=== PATIENT | female | born 1945 | race Caucasian/White ===

== ENCOUNTER 2022-04-07 09:09 | Emergency (ER) | payer MEDICARE, BC ==
[2022-04-07] MEDS ORDERED: Sodium Chloride 0.9% 10 ML Syringe FLUSH PRN ×2 (09:45→11:12)
[2022-04-07] MEDS ORDERED: Sodium Chloride 0.9% 1,000 ML IV SCH (10:00)
[2022-04-07] MEDS ORDERED: Heparin Sodium 5,000 Units/ML Vial IVPUSH ONE (11:08)
[2022-04-07] MEDS ORDERED: Iopamidol 755 Mg/ML 100 ML Bottle IVPUSH ONE (11:12)
[2022-04-07] MEDS ORDERED: Sodium Chloride 0.9% 100 ML IV SCH (11:15)
[2022-04-07] MEDS ORDERED: Heparin Sodium/D5W 25,000 UNITS/500 ML BAG IV SCH (11:15)
[2022-04-07] MEDS ORDERED: Iopamidol 755 MG/ML 50 ML Bottle IVPUSH ONE (11:19)
[2022-04-07] MEDS ORDERED: HYDROmorphone 0.5 MG/0.5 ML Syringe IVPUSH ONE (13:45)
[2022-04-07 14:33] VITALS: BP 126/73; PULSE 91
== END 2022-04-07 14:30 ==
LOC: JD.ED 09:09
DX: I26.99 Other pulmonary embolism without acute cor pulmonale (principal); Z88.6 Allergy status to analgesic agent; Z20.822 Contact with and (suspected) exposure to COVID-19
CPT/HCPCS: 36415; 71045; 71275; 74177; 80053; 81003; 83690; 83735; 83880; 84484; 85025; 85610; 85730; 86140; 93005; 96365; 96375; 99285; J1170; J1644; J3490; J7030; Q9967; U0002; 93010; 99284